=== PATIENT | male | born 1990 | race Caucasian/White ===

== ENCOUNTER 2019-06-26 11:56 | Emergency (ER) | payer MEDICAID ==
[~2019-06-26] VITALS: Ht 177.8 cm; Wt 127.7 kg
[2019-06-26 11:59] VITALS: BP 148/96
== END 2019-06-26 13:43 | disposition home or self-care (01) ==
LOC: ER 11:56
DX: S93.601A Unspecified sprain of right foot, initial encounter (principal); Z56.0 Unemployment, unspecified; X50.9XXA Other and unspecified overexertion or strenuous movements or postures, initial encounter; Y93.02 Activity, running; Y92.89 Other specified places as the place of occurrence of the external cause; Y99.8 Other external cause status
CPT/HCPCS: 73610; 73630; 99283